=== PATIENT | female | born 2005 | race Caucasian/White ===

== ENCOUNTER 2023-09-26 16:13 | Emergency (ER) | payer SELFPAY ==
[~2023-09-26] VITALS: Ht 172.7 cm; Wt 54.5 kg
[2023-09-26 16:22] VITALS: TEMP 98.1
[2023-09-26 19:05] VITALS: BP 118/72; PULSE 82
== END 2023-09-26 19:07 | disposition home or self-care (01) ==
LOC: COL.ER 16:13
DX: O9A.219 Injury, poisoning and certain other consequences of external causes complicating pregnancy, unspecified trimester (principal); S00.93XA Contusion of unspecified part of head, initial encounter; S10.93XA Contusion of unspecified part of neck, initial encounter; Z3A.00 Weeks of gestation of pregnancy not specified; W10.8XXA Fall (on) (from) other stairs and steps, initial encounter; Y92.009 Unspecified place in unspecified non-institutional (private) residence as the place of occurrence of the external cause